=== PATIENT | male | born 1975 | race Caucasian/White ===

== ENCOUNTER 2020-07-03 18:51 | Emergency (ER) | payer OTHER, SELFPAY ==
--- NOTE | 2020-07-03 19:02 | PC.NURSE ---
Pt comes to intake with chief complaint of hx of diabetes and vomiting, with possible dehydration. States was at [facility] in [place] earlier and was d/c but does not feel better. Pt burping loudly at intake, states my fingers are tingling . Pt registered and asked to take a seat for triage, and states wait, I'm not going to a room? . Explained busy waiting room and lengthy waits due to multiple sick patient's today. Pt ambulatory to exit. Tells staff coming in to work that he is going to leave and to take his name off the list .
== END 2020-07-03 19:02 | disposition left against medical advice (07) ==
LOC: ANHED 19:16
PROVIDERS: PCP Family Medicine
DX: Z53.21 Procedure and treatment not carried out due to patient leaving prior to being seen by health care provider (principal)
CPT/HCPCS: 99199